=== PATIENT | female | born 1970 | race Two or more races ===

== ENCOUNTER 2024-09-13 23:37 | Emergency (ER) | payer MEDICAID, SELFPAY ==
[2024-09-13 23:38] VITALS: BMI 31.1
[2024-09-13 23:58] VITALS: BP 127/78; PULSE 85; RESP 18; TEMP 36.5; O2SAT 95
--- NOTE | 2024-09-14 00:11 | PD.EDHA ---
ED Headache RME/HPI General Chief Complaint: Headache Stated Complaint: MIGRAINE HEADACHE PAST 3 DAYS Time Seen by Provider: 09/14/24 00:10 Arrival date/time: 09/13/24 23:37 53F with history of migraines and chronic sinusitis presents to ED with 3 days of migraine. Limitations: no limitations Related Data Home Medications ?Medication ?Instructions ?Recorded ?Confirmed fluoxetine 40 mg capsule (Prozac) 40 mg PO QAM #0 caps 01/04/16 02/08/22 ibuprofen 800 mg tablet 800 mg PO Q8HR PRN PAIN #0 tabs 02/26/17 02/08/22 sulfamethoxazole 800 1 tab PO QDAY 02/08/22 02/08/22 mg-trimethoprim 160 mg tablet Previous Rx's ?Medication ?Instructions ?Recorded pantoprazole 40 mg tablet,delayed 40 mg PO QDAY #30 tabs 12/13/18 release (Protonix) cyclobenzaprine 10 mg tablet 10 mg PO Q8H PRN muscle spasm #20 10/18/20 tabs rizatriptan 10 mg disintegrating See Rx Instructions PO .COMPLEX 09/14/24 tablet (Maxalt-INFORMATION ASSURANCE ENGINEER) #30 tabs Allergies Allergy/AdvReac Type Severity Reaction Status Date / Time diphenhydramine Allergy Severe HIVES Verified 02/08/22 06:51 Penicillins Allergy Severe HIVES Verified 02/08/22 06:51 Review of Systems Review of Systems Systems Reviewed: All systems reviewed, normal except as documented Constitutional Constitutional: Reports system reviewed and no additional complaints, except as documented, Reports as per HPI, Denies fever(s) and Reports headache(s) ENT Ears, Nose, Mouth, and Throat: Denies disequilibrium and Reports headache(s) Cardiovascular Cardiovascular: Reports system reviewed and no additional complaints, except as documented, Denies chest pain and Denies dyspnea Respiratory Respiratory: Reports system reviewed and no additional complaints, except as documented, Denies cough and Denies dyspnea Gastrointestinal Gastrointestinal: Reports system reviewed and no additional complaints, except as documented, Denies abdominal pain, Denies nausea and Denies vomiting Neurologic Neurologic: Reports system reviewed and no additional complaints, except as documented, Denies confusion, Denies disequilibrium and Reports headache(s) Psychiatric Psychiatric: Denies confusion Past Medical History Past Medical History NEUROLOGIC: Positive Neurological Disorders and Migraine (TAKES OTC); Negative Seizures CARDIAC: Negative Cardiac Disorders, Congestive Heart Failure, Edema, Cellulitis or Varicose Veins RESPIRATORY: Negative Chronic Obstructive Pulmonary Disease (COPD) GASTROINTESTINAL: Positive Gastrointestinal Disorders, Gall Bladder Disease (LAP) and Gastroesophageal Reflux Disease; Negative Hepatitis GENITOURINARY: Negative Genitourinary Disorders or Renal Disease REPRODUCTIVE: Positive Previous Pregnancies (X7) MUSCULOSKELETAL: Positive Musculoskeletal Disorders and Arthritis ENDOCRINE: Negative Endocrine Disorders, Diabetes Mellitus Type 1 or Diabetes Mellitus Type 2 HEMATOLOGIC: Negative Blood Disorders PSYCHO/SOCIAL: Positive Depression, Anxiety and Post Traumatic Stress Disorder OTHER HISTORY: Positive MRSA (LEFT LEG 2012) and Chicken Pox; Negative Hospitalization, Autoimmune Disease, Shingles, Falls, Blood Transfusions, Blood Transfusion Reaction, Anesthesia Reactions, Chemotherapy, Radiation Therapy, Measles, Mumps or Cancer Family History FAMILY HISTORY: Positive Family Psychiatric Problems (MOTHER (DEPRESSION,ANXIETY)), Family Cardiac Disorders (MOTHER (IN)BROTHER,MOTHER (HTN)), Family Gastrointestinal Problems (MOTHER (ULCER)), Family Surgery (MOTHER,BROTHER) and Family Anesthesia Reaction (MOTHER,BROTHER (HARD TIME WAKING UP)); Negative Family Respiratory Disorders or Family Cancer Surgical History SURGICAL: Positive Nose Surgery, Tonsillectomy and Tubal Ligation; Negative Cardiac Surgery or Pacemaker Social History SMOKING STATUS: Never smoker SUBSTANCE USE: does not use ED Exam General Limitations: Present no limitations General appearance: Present alert and in no apparent distress Head Head exam: Present atraumatic Eye Eye exam: Present normal appearance, PERRL and EOMI ENT ENT exam: Present normal exam, normal oropharynx and mucous membranes moist Neck Neck exam: Present normal inspection, full ROM and trachea midline Chest Chest inspection: Present normal inspection and symmetric chest wall rise Respiratory Respiratory exam: Present normal lung sounds bilaterally Cardiovascular Cardiovascular exam: Present regular rate, normal rhythm and normal heart sounds Abdominal Exam Abdominal exam: Present soft and normal bowel sounds Extremities Exam Extremities exam: Present normal inspection and full ROM Back Exam Back exam: Present normal inspection and full ROM Neurological Exam Neurological exam: Present alert, oriented X3 and CN II-XII intact Psychiatric Psychiatric exam: Present normal affect and normal mood Skin Skin exam: Present warm, dry, intact and normal color Course Quality Measures none Orders Category Date Time Status Metoclopramide [Reglan] Med 09/14/24 00:10 Discontinued 10 mg PO X1 ONE SUMAtriptan INJ [Imitrex Inj] Med 09/14/24 00:10 Discontinued 6 mg SC X1 ONE Vital Signs Vital signs: Vital Signs Temperature 97.7 F 09/13/24 23:58 Pulse Rate 85 09/13/24 23:58 Respiratory Rate 18 09/13/24 23:58 Blood Pressure 127/78 09/13/24 23:58 Pulse Oximetry (%) 95 09/13/24 23:58 Oxygen Delivery Method Room Air 09/13/24 23:58 O2 at 95% on RA and WNLs Headache MDM Narrative MDM Narrative:: 53F with history of migraines and chronic sinusitis presents to ED with 3 days of migraine. Physical exam reveals normal pupil response and EOM. Patient is afebrile, calm, and alert. Migraine meds helped. Patient data External records reviewed:: [facility] previous records Clinical information provided by:: patient Social determinants that could affect healthcare access:: none Patient has the following chronic illnesses:: migraines and chronic sinusitis How is presenting disease/condition affected by chronic disease/condition?: exacerbated by Evaluation data The following diagnostics were reviewed and interpreted by me:: other (specify) (none) Lab and/or radiology exams considered but not ordered:: not ordered Interpretation Summary: n/a Medications / Prescriptions Medications or Prescriptions considered but not ordered:: ordered Medication administrations:: Medication Administration History Discontinued Medications Metoclopramide HCl (Metoclopramide 5 Mg Tablet) 10 mg PO X1 ONE Stop: 09/14/24 00:11 Last Admin: 09/14/24 00:21 Dose: 10 mg Documented By: JASMIN Sumatriptan Succinate (Sumatriptan Inj 6 Mg/0.5 Ml Vial) 6 mg SC X1 ONE Stop: 09/14/24 00:11 Last Admin: 09/14/24 00:23 Dose: 6 mg Documented By: JASMIN above Consultations Consultation(s) initiated? (list below): No Diagnosis Differential diagnosis headache: migraine, tension headache, subarachnoid hemorrhage, headache, meningitis, sinusitis and postconcussion syndrome Most likely diagnosis given after review of the tests above:: migraine Admission Indicated Admission indicated?: not indicated Admission Request Was there a request for admission?: No Disposition Plan Disposition Plan: Discharge Discharge Attestation Discharge Attestation: The patient and all family members were given an opportunity to ask questions and understood the discharge instructions. Discharge instructions specifically effects, indications for sooner follow up or return to the emergency department, and the expected course of current diagnosis. Patient condition: Stable Discharge Plan Plan Patient Disposition: HOME (Self Care) Disposition Comment: Stable Prescriptions/Referrals Prescriptions/Med Rec: New rizatriptan [Maxalt-INFORMATION ASSURANCE ENGINEER] 10 mg tablet,disintegrating See Rx Instructions .ROUTE .COMPLEX Qty: 30 0RF Rx Instructions: take 1 tab at onset of headache; if no relief may repeat 1 tab after at least 2 hrs; max = 3 tabs/24 hr No Action fluoxetine [Prozac] 40 MG capsule 40 mg PO QAM Qty: 0 ibuprofen 800 MG tablet 800 mg PO Q8HR PRN (Reason: PAIN) Qty: 0 cyclobenzaprine 10 mg tablet 10 mg PO Q8H PRN (Reason: muscle spasm) Qty: 20 0RF pantoprazole [Protonix] 40 mg tablet,delayed release (DR/EC) 40 mg PO QDAY Qty: 30 0RF sulfamethoxazole-trimethoprim 800-160 mg tablet 1 tab PO QDAY Rx Instructions: for 10 days Referrals: Edward Urena PA-C [Primary Care Provider] - In 1 week Problem List Clinical Impression: Migraine Patient/Caregiver Discharge Instructions Additional Instructions: Please follow-up with PCP within 24-48 hours and return immediately if symptoms worsen. Try the new med. Should not be taking 800 mg twice a day every day. Print Language: St Helen[place] Stand Alone Forms: Patient Portal Info Letter EVELYNE/DAVID Supervising Physician EVELYNE/DAVID Supervising Physician: Dr. Keith
[2024-09-14] MEDS: METOCLOPRAMIDE 5 MG TABLET 10 MG PO (00:21)
[2024-09-14] MEDS: SUMAtriptan INJ 6 MG/0.5 ML VIAL SC (00:23)
== END 2024-09-14 01:31 | disposition home or self-care (01) ==
PROVIDERS: Emergency Provider Emergency Medicine; PCP Physician Assistant
DX: G43.909 Migraine, unspecified, not intractable, without status migrainosus (principal)
CPT/HCPCS: 96372; 99283; J3030; A9270

== ENCOUNTER 2025-02-04 16:47 | Emergency (ER) | payer MEDICAID, SELFPAY ==
[2025-02-04 16:52] VITALS: BMI 30.2
[2025-02-04 17:57] VITALS: BP 125/78; PULSE 93; RESP 18; TEMP 37.1; O2SAT 99
--- NOTE | 2025-02-04 18:27 | EKG_ITS ---
[facility] Test Date: 2025-02-04 Pat Name: JUICE BRADY Department: Room: - Gender: Female Sagger Maker: : 1970 Requested By: Ramiro Joyce Order Number: [id number] Reading MD: Ramiro Joyce Measurements Intervals [place] Rate: 88 P: 61 MO: 155 QRS: -5 QRSD: 72 T: 64 QT: 376 QTc: 456 Interpretive Statements SINUS RHYTHM NONSPECIFIC T-WAVE ABNORMALITY Compared to ECG 02/07/2022 10:01:25 T-wave abnormality now present Myocardial infarct finding no longer present /store/S0/[id number]/ecg/[id number].pdf
--- NOTE | 2025-02-04 18:34 | EDNOTE_ITS ---
Nausea/Vomit./Diarrhea-RME/HPI General Chief complaint: General Adult/Misc Complain Stated complaint: I THING MY BLOOD SUGAR IS HIGH Time Seen by Provider: 02/04/25 18:26 Arrival date/time: 02/04/25 16:47 54F with history of DM, cholecystectomy and anxiety presents to ED with 2 days of non-bloody diarrhea and N/V. Patient also had heart palps, but not currently. Patient denies CP and SOB. Patient believes she ate too much dairy yesterday morning. Limitations: no limitations Related Data Home Medications ?Medication ?Instructions ?Recorded ?Confirmed fluoxetine 40 mg capsule (Prozac) 40 mg PO QAM #0 caps 01/04/16 02/08/22 ibuprofen 800 mg tablet 800 mg PO Q8HR PRN PAIN #0 t abs 02/26/17 02/08/22 sulfamethoxazole 800 1 tab PO QDAY 02/08/2202/08 mg-trimethoprim 160 mg tablet Previous Rx's ?Medication ?Instructions ?Recorded pantoprazole 40 mg tablet,delayed 40 mg PO QDAY #30 ta bs 12/13/18 release (Protonix) cyclobenzaprine 10 mg tablet 10 mg PO Q8H PRN muscle s pasm #20 10/18/20 tabs rizatriptan 10 mg disintegrating See Rx Instructions P O .COMPLEX 09/14/24 tablet (Maxalt-DIRECTOR SEMICONDUCTOR) #30 tabs Allergies Allergy/AdvReac Type Severity Reaction Status Date / Time diphenhydramine Allergy Severe HIVES Verified 02/04/25 16:54 Penicillins Allergy Severe HIVES Verified 02/04/25 16:54 Review of Systems Review of Systems Systems Reviewed: All systems reviewed, normal except as documented Constitutional Constitutional: Reports system reviewed and no additional complaints, except as documented, Denies fever(s) and Denies headache(s) ENT Ears, Nose, Mouth, and Throat: Denies disequilibrium and Denies headache(s) Cardiovascular Cardiovascular: Reports system reviewed and no additional complaints, except as documented, Reports as per HPI, Denies chest pain, Denies dyspnea and Reports palpitations Respiratory Respiratory: Reports system reviewed and no additional complaints, except as documented, Denies cough and Denies dyspnea Gastrointestinal Gastrointestinal: Reports system reviewed and no additional complaints, except as documented, Reports as per HPI, Reports abdominal pain, Reports loose stools, Reports nausea and Reports vomiting Neurologic Neurologic: Reports system reviewed and no additional complaints, except as documented, Denies confusion, Denies disequilibrium and Denies headache(s) Psychiatric Psychiatric: Denies confusion Endocrine Endocrine: Reports palpitations Past Medical History Past Medical History NEUROLOGIC: Positive Neurological Disorders and Migraine (TAKES OTC); Negative Seizures CARDIAC: Negative Cardiac Disorders, Congestive Heart Failure, Edema, Cellulitis or Varicose Veins RESPIRATORY: Negative Chronic Obstructive Pulmonary Disease (COPD) GASTROINTESTINAL: Positive Gastrointestinal Disorders, Gall Bladder Disease (LAP) and Gastroesophageal Reflux Disease; Negative Hepatitis GENITOURINARY: Negative Genitourinary Disorders or Renal Disease REPRODUCTIVE: Positive Previous Pregnancies (X7) MUSCULOSKELETAL: Positive Musculoskeletal Disorders and Arthritis ENDOCRINE: Negative Endocrine Disorders, Diabetes Mellitus Type 1 or Diabetes Mellitus Type 2 HEMATOLOGIC: Negative Blood Disorders PSYCHO/SOCIAL: Positive Depression, Anxiety and Post Traumatic Stress Disorder OTHER HISTORY: Positive MRSA (LEFT LEG 2012) and Chicken Pox; Negative Hospitalization, Autoimmune Disease, Shingles, Falls, Blood Transfusions, Blood Transfusion Reaction, Anesthesia Reactions, Chemotherapy, Radiation Therapy, Measles, Mumps or Cancer Family History FAMILY HISTORY: Positive Family Psychiatric Problems (MOTHER (DEPRESSION,AN XIETY)), Family Cardiac Disorders (MOTHER (CT)BROTHER,MOTHER (HTN)), Family Gastrointestinal Problems (MOTHER (ULCER)), Family Surgery (MOTHER,BROTHER) and Family Anesthesia Reaction (MOTHER,BROTHER (HARD TIME WAKING UP)); Negative Family Respiratory Disorders or Family Cancer Surgical History SURGICAL: Positive Nose Surgery, Tonsillectomy and Tubal Ligation; Negative Cardiac Surgery or Pacemaker Social History SMOKING STATUS: Never smoker SUBSTANCE USE: does not use ED Exam General Limitations: Present no limitations General appearance: Present alert and in no apparent distress Head Head exam: Present atraumatic Eye Eye exam: Present normal appearance, PERRL and EOMI ENT ENT exam: Present normal exam, normal oropharynx and mucous membranes moist Neck Neck exam: Present normal inspection, full ROM and trachea midline Chest Chest inspection: Present normal inspection and symmetric chest wall rise Respiratory Respiratory exam: Present normal lung sounds bilaterally Cardiovascular Cardiovascular exam: Present regular rate, normal rhythm and normal heart sounds Abdominal Exam Abdominal exam: Present soft and normal bowel sounds Extremities Exam Extremities exam: Present normal inspection and full ROM Back Exam Back exam: Present normal inspection and full ROM Neurological Exam Neurological exam: Present alert, oriented X3 and CN II-XII intact Psychiatric Psychiatric exam: Present normal affect and normal mood Skin Skin exam: Present warm, dry, intact and normal color Course Quality Measures none Orders Category Date Time Status CT Screening NOW Care 02/04/25 19:28 Completed EKG (ED ONLY) *Do not use* NOW Care 02/04/25 18:27 Completed Insert IV NOW Care 02/04/25 19:[address] abdomen pelvis w con Stat Exams 02/04/25 19:28 Completed EKG (ED Only) Stat Exams 02/04/25 18:27 Draft CBC Stat Lab 02/04/25 18:36 Completed CMP [Comprehensive Metabolic Panel] Stat Lab 02/04/25 18:36 Completed Drug Screen,Urine Stat Lab 02/04/25 19:02 Completed Lipase Stat Lab 02/04/25 18:36 Completed Troponin I Stat Lab 02/04/25 18:36 Completed Urinalysis, C/S if Indicated Stat Lab 02/04/25 19:02 Completed Urine Culture Stat Lab 02/04/25 19:02 Received Vital Signs Vital signs: Vital Signs Temperature 98.7 F 02/04/25 17:57 Pulse Rate 93 02/04/25 17:57 Respiratory Rate 18 02/04/25 17:57 Blood Pressure 125/78 02/04/25 17:57 Pulse Oximetry (%) 99 02/04/25 17:57 Oxygen Delivery Method Room Air 02/04/25 17:57 O2 at 99% on RA and WNLs Nausea/Vomiting/Diarrhea MDM Narrative MDM Narrative:: 54F with history of DM, cholecystectomy and anxiety presents to ED with 2 days of non-bloody diarrhea and N/V. Patient also had heart palps, but not currently. Patient denies CP and SOB. Patient believes she ate too much dairy yesterday morning. Physical exam reveals normal WOB. No ab tenderness. Patient is afebrile, calm, and alert. EKG is NSR. Trop normal. 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 However, UA clean. Patient states she always has air in bladder and is pending urology referral. CMP unremarkable except for elevated biliary labs, but appears to be chronically so. Moderate luekocytosis, likely reactive. Patient data External records reviewed:: [facility] previous records Clinical information provided by:: patient Social determinants that could affect healthcare access:: mental health Patient has the following chronic illnesses:: DM and anxiety How is presenting disease/condition affected by chronic disease/condition?: exacerbated by Evaluation data The following diagnostics were reviewed and interpreted by me:: lab results and EKG tracing(s) Lab and/or radiology exams considered but not ordered:: ordered Interpretation Summary: above Medications / Prescriptions Medications / Prescriptions considered but not ordered:: not ordered Medication administrations:: n/a Consultations Consultation(s) initiated? (list below): No Diagnosis Nausea Differential Diagnosis: traveler's diarrhea, food poisoning, gastroenteritis, clostridium difficile infection, drug-induced nausea and vomiting, dehydration and other (ACS, anxiety) Most likely diagnosis given after review of the tests above:: gastroenteritis Admission Indicated Admission indicated?: not indicated Admission Request Was there a request for admission?: No Disposition Plan Disposition Plan: Discharge Discharge Attestation Discharge Attestation: The patient and all family members were given an opportunity to ask questions and understood the discharge instructions. Discharge instructions specifically effects, indications for sooner follow up or return to the emergency department, and the expected course of current diagnosis. Patient condition: Stable Discharge Plan Plan Patient Disposition: HOME (Self Care) Discharge Disposition comment: Stable Prescriptions/Referrals Prescriptions/Med Rec: No Action fluoxetine [Prozac] 40 MG capsule 40 mg PO QAM Qty: 0 ibuprofen 800 MG tablet 800 mg PO Q8HR PRN (Reason: PAIN) Qty: 0 cyclobenzaprine 10 mg tablet 10 mg PO Q8H PRN (Reason: muscle spasm) Qty: 20 0RF pantoprazole [Protonix] 40 mg tablet,delayed release (DR/EC) 40 mg PO QDAY Qty: 30 0RF sulfamethoxazole-trimethoprim 800-160 mg tablet 1 tab PO QDAY Rx Instructions: for 10 days rizatriptan [Maxalt-DIRECTOR SEMICONDUCTOR] 10 mg tablet,disintegrating See Rx Instructions .ROUTE .COMPLEX Qty: 30 0RF Rx Instructions: take 1 tab at onset of headache; if no relief may repeat 1 tab after at least 2 hrs; max = 3 tabs/24 hr Referrals: Edward Urena PA-C [Primary Care Provider] - In 1 week Problem List Clinical Impression: Gastroenteritis Patient/Caregiver Discharge Instructions Education Materials: ED Gastroenteritis, Noninfectious Additional Instructions: Please follow-up with PCP within 24-48 hours and return immediately if symptoms worsen. Keep hydrated. Advance diet as tolerated. Print Language: Japanese Stand Alone Forms: Patient Portal Info Letter EVELYNE/RESIDENCY PROGRAM COORDINATOR Supervising Physician PA/RESIDENCY PROGRAM COORDINATOR Supervising Physician: Dr. Juan
[2025-02-04 18:56] LABS: Basophils # (Auto) 0.1 Thou/mm3 (0.0-0.2); Basophils % (Auto) 0 % (0-2.5); Eosinophils # (Auto) 0.2 Thou/mm3 (0.0-0.5); Eosinophils % (Auto) 1 % (0-10); Hematocrit 44.3 % (36.0-46.0); Hemoglobin 15.1 g/dL (12.0-16.0); Immature Granulocytes % (Auto) 1 % (0-0); Immature Granulocytes Auto 0.07 Thou/mm3 (0.00-0.00); Lymphocytes # (Auto) 1.6 Thou/mm3 (1.0-4.8); Lymphocytes % (Auto) 11 % (10-50); Mean Corpuscular HGB Conc 34.1 g/dl (31.0-37.0); Mean Corpuscular Hemoglobin 29.2 pg (25.0-35.0); Mean Corpuscular Volume 86 fL (80-100); Monocytes # (Auto) 0.7 Thou/mm3 (0.0-0.8); Monocytes % (Auto) 5 % (0-12); Neutrophils # (Auto) 12.4 Thou/mm3 (1.8-7.7); Neutrophils % (Auto) 83 % (37-80); Nucleated Red Blood Cell % 0 /100 WBC (0); Platelet Count 264 Thou/mm3 (140-440); RDW Standard Deviation 39.3 fL (36.4-46.3); Red Blood Count 5.18 Miln/mm3 (4.00-5.20)
[2025-02-04 19:07] LABS: Alanine Aminotransferase 55 U/L (10-49); Albumin, Serum 4.8 gm/dL (3.5-5.0); Albumin/Globulin Ratio 1.7 (1.2-2.2); Alkaline Phosphatase 167 U/L (46-116); Anion Gap 12 (7-16); Aspartate Amino Transferase 43 U/L (0-34); BUN/Creatinine Ratio 23 Ratio (12-20); Bilirubin,Total 1.1 mg/dL (0.3-1.2); Blood Urea Nitrogen 18 mg/dL (9-23); Calcium 9.4 mg/dL (8.3-10.6); Calcium (Corrected) 9.4 mg/dL (8.5-10.1); Carbon Dioxide 25.8 mMol/L (20.0-31.0); Chloride 104 mMol/L (98-107); Creatinine (Component) 0.8 mg/dL (0.6-1.3); Estimated Creatinine Clearance 71.5 mL/min (>60); Globulin 2.9 gm/dL (2.3-3.5); Glucose 213 mg/dL (74-106); Lipase 26 U/L (12-53); Osmolality,Calculated 291 (275-295); Potassium 4.1 mMol/L (3.4-5.1); Sodium 142 mMol/L (136-145); Total Protein 7.7 gm/dL (5.7-8.2); Troponin I < 0.002 ng/mL (0.0-0.045); eGFR > 60 See Note
[2025-02-04 19:12] LABS: Collection Type, Urine Clean Catch
--- NOTE | 2025-02-04 19:28 | XR_ITS ---
Examination: CT abdomen with intravenous contrast CT pelvis with intravenous contrast 2-D coronal reconstructions 2-D sagittal reconstructions Date and time of exam:February 04, 2025, 2040 hours Comparison March 14, 2015 INDICATIONS: Generalized abdominal pain nausea vomiting diarrhea today. CTDI: vol (mGy) 9 DLP: (mGycm) 494 Technique: Multiple axial sections of the abdomen and pelvis have been obtained. 64 slice high-resolution scanner used. 3 mm axial sections have been obtained, post intravenous injection 60 cc Isovue 370 2-D sagittal, coronal reconstructions obtained. Low dose protocols were performed. One or more of the following dose reduction techniques were used; automated exposure control, adjustment of the mA and/or KV according to patient size, use of iterative reconstruction technique. Findings: No focal liver or splenic lesions Absent gallbladder No pancreatic or adrenal mass No renal or ureteral calculi, no hydronephrosis Aorta normal size Normal appendix No bowel obstruction No pelvic mass Air in the urinary bladder with significant urinary bladder wall thickening up to 10 mm IMPRESSION: No renal or ureteral calculi, no hydronephrosis Normal appendix Findings most consistent with emphysematous cystitis, clinical correlation is advised
[2025-02-04 19:57] LABS: Bacteria,Urine Rare; Bilirubin,Urine Negative (Negative); Blood,Urine 3+ (Negative); Color,Urine Orange (Lt Yel-Yel); Glucose, Urine Negative (Negative); Ketones,Urine Negative (Negative); Leukocyte Esterase,Urine Positive (Negative); Nitrite,Urine Positive (Negative); PH,Urine 6.5 (5.0-7.0); Protein,Urine 1+ (Neg - Trace); RBC,Urine < 1 /hpf (0-3); Specific Gravity,Urine 1.031 (1.001-1.035); Squamous Epithelial Cell,Urine 2 /hpf (0-5); WBC,Urine 1 /hpf (0-5)
[2025-02-04 20:03] LABS: Clarity,Urine Turbid (Clear/Hazy); Culture Indicated,Urine Yes
[2025-02-04 20:06] LABS: Amphetamine/Methamp Scrn,U Negative (Negative); Barbiturate Screen,Urine Negative (Negative); Benzodiazepines Screen,Urine Negative (Negative); Benzoylecgonine Screen, Ur Negative (Negative); Fentanyl Screen,Urine Negative (Negative); Opiate Screen,Urine Negative (Negative); THC Screen,Urine Negative (Negative)
== END 2025-02-04 21:35 | disposition home or self-care (01) ==
PROVIDERS: Physician Assistant; Emergency Provider Emergency Medicine; PCP Physician Assistant
DX: K52.9 Noninfective gastroenteritis and colitis, unspecified (principal); E11.9 Type 2 diabetes mellitus without complications
CPT/HCPCS: 36415; 74177; 80053; 80307; 81001; 83690; 84484; 85025; 87077; 87086; 87186; 93005; 99285; A4649; Q9967

== ENCOUNTER → 2025-07-14 | Outpatient (CLI) | payer MEDICAID, SELFPAY ==
--- NOTE | 2025-07-14 13:00 | XR_ITS ---
Examination: CT abdomen and pelvis without contrast. Coronal 3-D reconstructions. Sagittal 2-D reconstructions. Date and time of exam: July 14, 2025, 1343 hours, comparison January 05, 2025 INDICATIONS: History kidney stones for years CTDI: vol (mGy): 8.04 DLP: (mGycm): 462 Technique: Axial images of the abdomen have been obtained, 3 mm slice thickness Intravenous contrast material has not been administered. Low dose protocols were performed. One or more of the following dose reduction techniques were used; automated exposure control, adjustment of the mA and/or KV according to patient size, use of iterative reconstruction technique. Findings: No focal liver or splenic lesions Absent gallbladder No pancreatic or adrenal mass 1 mm upper pole nonobstructing left renal calculus No bowel obstruction Normal appendix No diverticulitis Anteverted uterus No bladder mass or bladder calculi IMPRESSION: 1 mm nonobstructing upper pole left renal calculus, no hydronephrosis or ureteral calculi
== END | disposition home or self-care (01) ==
PROVIDERS: Referring Provider Surgery; Visit Provider Surgery
DX: N20.0 Calculus of kidney (principal)
CPT/HCPCS: 74176